=== PATIENT | female | born 1995 | race Caucasian/White ===

== ENCOUNTER 2019-12-24 05:46 | Day surgery (SDC) | payer MEDICAID ==
[~2019-12-24] VITALS: Ht 149.9 cm; Wt 60.8 kg
[~2019-12-24 05:46] MED LIST: ESTARYLLA PO
[2019-12-24 06:28] LABS: HCG SERUM NEGATIVE (NEGATIVE)
[2019-12-24 06:33] LABS: HEMATOCRIT 40.7 % (36.0-48.0); HEMOGLOBIN 13.5 g/dL (12-16); MCHC 33.2 g/dL (31.0-37.0); MCV 87.3 fL (80.0-100.0); MEAN PLATELET VOLUME 10.8 fL (7.4-10.4); RBC 4.66 10x6/uL (4.00-5.40); RDW 12.9 % (11.5-14.5); WBC 5.1 10x3/uL (4.8-10.8)
[2019-12-24 07:13] VITALS: BP 113/75; Ht 149.9 cm; Wt 60.8 kg
--- NOTE | 2019-12-24 12:40 | NUR ---
DISCHARGE INSTRUCTIONS REVIEWED WITH PATIENT AND BOYFRIEND, DISCHARGED HOME VIA WHEELCHAIR TO PRIVATE VEHICE WITH SPOUSE
--- NOTE | 2019-12-26 11:59 | OP ---
PATIENT NAME: CORAZON NELSON MEDICAL RECORD: [id number] :97 [facility] DATE: SURGEON: SOLEDAD SETHI MD DATE OF OPERATION: 12/24/2019 PREOPERATIVE DIAGNOSES: 1. Chronic tonsillitis. 2. Tonsil asymmetry. POSTOPERATIVE DIAGNOSES: 1. Chronic tonsillitis. 2. Tonsil asymmetry. PROCEDURE: Tonsillectomy and adenoidectomy. SURGEON: Soledad Sethi MD ANESTHESIA: General orotracheal. BLOOD LOSS: Less than 5 cc. SPECIMENS: Right and left tonsil. COMPLICATIONS: None. DISPOSITION: Recovery stable. FINDINGS: Right peritonsillar abscess, 3-5 cc. PROCEDURE IN DETAIL: She was brought to the operating room and placed in supine position, sedated and intubated by anesthesia. The table was turned 90 degrees. Head drape was applied and she was positioned for tonsillectomy. Using a headlight, a Pato-Chinmay mouth gag was carefully inserted and elevated on a towel on her chest. The palate was examined and palpated. It was normal. The right tonsil was larger than the left. An Allis was used to grasp the right tonsil. Spatula tip cautery on a setting of 9 was used to dissect it out along its capsule, preserving the anterior and posterior tonsillar pillar and superolaterally, abscess cavity was entered. Purulence was evacuated. The tonsil was somewhat inflamed and obviously infected. The left tonsil was removed in the same fashion. It was more normal tonsil. Mirror was used to examine the nasopharynx. Suction cautery on a setting of 35 was used to ablate and suction the adenoid tissue up by the choanae. Once I completed, both sides of the nose were irrigated with saline. The pharynx was suctioned. Tonsillar fossae were agitated. Suction cautery on a setting of 18 was used to stop any bleeding. There was a little more at the superior pole of that abscess cavity, but it was just oozing granular kind of bleeding. With that completely under control, a Pato-Chinmay mouth gag was let down and removed. She was awakened, extubated, and transported to recovery in good condition. No complications. TRANSINT:[id number] Voice Confirmation ID: [id number] DOCUMENT ID: [id number] OPERATIVE REPORT [id number] CORAZON NELSON ERIC MD at 1159 CC: [id number] DICTATION DATE: 12/24/19 115 HELMINTHOLOGY TEACHER: 12/24/19 1458 [facility] [place] 12/24/19 [facility] [address] [place] [address]
--- NOTE | 2019-12-26 11:59 | HP ---
PATIENT: SANDHYA NELSON MEDICAL RECORD: [id number] ACCOUNT: [id number] LOCATION:[facility] : 97 ADMISSION DATE: 12/24/19 PCP: RAVI CALLEJAS MD HISTORY AND PHYSICAL EXAMINATION HISTORY OF PRESENT ILLNESS: Sandhya is 24 years old. She has been having recurrent problems with tonsillitis, being admitted for tonsillectomy and adenoidectomy. She has had problems with nausea. PAST MEDICAL HISTORY: Otherwise negative. PAST SURGICAL HISTORY: None. CURRENT MEDICATIONS: Estarylla control daily. ALLERGIES: No known drug allergies. PHYSICAL EXAMINATION: GENERAL: Healthy-appearing. FACE: Normal and symmetric. EYES: Sclerae and conjunctivae are normal. EARS: Canals and TMs normal. NOSE: No masses, polyps or drainage. ORAL CAVITY AND OROPHARYNX: Inflamed with tonsilliths bilaterally, 3+. CHEST: Clear. CARDIOVASCULAR: Regular rate and rhythm, no murmur. EXTREMITIES: Normal. IMPRESSION: Chronic pharyngitis. PLAN: Tonsillectomy and adenoidectomy. TRANSINT:[id number] Voice Confirmation ID: [id number] DOCUMENT ID: [id number] SOLEDAD VILLALOBOS MD at 1159 CC: [id number] DICTATION DATE: 12/21/19 1441 NUCLEAR ENGINEERING TECHNICIAN: 12/21/19 1537 [facility] 12/24/[address] [id number]
== END 2019-12-24 12:45 | disposition home or self-care (01) ==
LOC: D.OPS 05:46 → D.PAN 08:00 → D.OPS 08:00 → D.PAN 08:15 → D.OPS 12:45
PROVIDERS: Anesthesiology; ATTEND Otolaryngology
DX: J35.01 Chronic tonsillitis (principal); J31.2 Chronic pharyngitis; R11.0 Nausea